=== PATIENT | female | born 1975 | race American Indian/Alaskan Native ===

== ENCOUNTER 2021-03-08 13:40 | Emergency (ER) | payer OTHER ==
[~2021-03-08] VITALS: Ht 157.5 cm; Wt 84.8 kg
[~2021-03-08 13:40] MED LIST: KEFLEX500 MG PO; NORCO 5-325 TA1 EACH PO; PSEUDOEPHEDRIN120 MG PO; VALIUM5 MG PO
[2021-03-08] MEDS ORDERED: SUMATRIPTAN SU100 MG PO (14:11)
[2021-03-08] MEDS ORDERED: DAY TIME COLD-296 ML PO (14:12)
== END 2021-03-08 17:46 | disposition home or self-care (01) ==
LOC: ED 13:40
DX: U07.1 COVID-19 (principal); F17.200 Nicotine dependence, unspecified, uncomplicated; Z79.899 Other long term (current) drug therapy
CPT/HCPCS: 99284-25; M0243; Q0244; U0003

== ENCOUNTER 2021-05-03 18:54 | Emergency (ER) | payer OTHER ==
[~2021-05-03] VITALS: Ht 157.5 cm; Wt 90.3 kg
[~2021-05-03 18:54] MED LIST changes: +DAY TIME COLD-296 ML PO; +SUMATRIPTAN SU100 MG PO
[2021-05-03] MEDS ORDERED: AUGMENTIN 875-1 EACH PO (19:36)
== END 2021-05-03 19:43 | disposition home or self-care (01) ==
LOC: ED 18:54
DX: G43.909 Migraine, unspecified, not intractable, without status migrainosus (principal); F17.200 Nicotine dependence, unspecified, uncomplicated; Z90.49 Acquired absence of other specified parts of digestive tract
CPT/HCPCS: 99282; J3030

== ENCOUNTER 2021-06-02 12:53 | Emergency (ER) | payer OTHER ==
[~2021-06-02] VITALS: Ht 157.5 cm; Wt 90.3 kg
[~2021-06-02 12:53] MED LIST changes: +AUGMENTIN 875-1 EACH PO
--- OUTSIDE RECORDS SUMMARY | 2021-06-02 13:02 | XMS ---
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 Jim has no Care Guidelines for this patient. [place] VISIT COUNT (12 MO.) 3 [facility] [place] [facility] TOTAL 3 NOTE: Visits indicate total known visits. ED/C VISIT TRACKING (12 MO.) 06/02/2021 12:54 [facility] [place] TYPE: Emergency COMPLAINT: - L EAR/JAW PAIN 05/03/2021 18:55 [facility] [place] TYPE: Emergency COMPLAINT: - LT SIDED JAW/EAR PAIN DIAGNOSES: - Jaw pain - Nicotine dependence, unspecified, uncomplicated - Migraine, unspecified, not intractable, without status migrainosus - Acquired absence of other specified parts of digestive tract 03/08/2021 13:41 [facility] [place] TYPE: Emergency COMPLAINT: - FLU SYMPTOMS DIAGNOSES: - Nicotine dependence, unspecified, uncomplicated - COVID-19 - Other fci (current) drug therapy - Diarrhea, unspecified INPATIENT VISIT TRACKING (12 MO.) No inpatient visits to display in this time frame [email or web address]
== END 2021-06-02 14:40 | disposition home or self-care (01) ==
LOC: ED 12:53
DX: K08.89 Other specified disorders of teeth and supporting structures (principal); F17.200 Nicotine dependence, unspecified, uncomplicated
CPT/HCPCS: 99282

== ENCOUNTER 2022-03-04 16:22 | Emergency (ER) | payer OTHER ==
[~2022-03-04] VITALS: Ht 157.5 cm; Wt 90.3 kg
[2022-03-04] MEDS ORDERED: PAXLOVID 300-11 EACH PO (16:47)
[2022-03-04] MEDS ORDERED: VENTOLIN HFA18 GM INH (17:23)
[2022-03-04] MEDS ORDERED: PREDNISONE20 MG PO (17:23)
== END 2022-03-04 17:35 | disposition home or self-care (01) ==
LOC: ED 16:22
DX: U07.1 COVID-19 (principal); F17.200 Nicotine dependence, unspecified, uncomplicated
CPT/HCPCS: 99283

== ENCOUNTER 2022-03-08 11:54 | Emergency (ER) | payer OTHER ==
[~2022-03-08] VITALS: Ht 157.5 cm; Wt 90.3 kg
[~2022-03-08 11:54] MED LIST changes: +PAXLOVID 300-11 EACH PO; +PREDNISONE20 MG PO; +VENTOLIN HFA18 GM INH
--- OUTSIDE RECORDS SUMMARY | 2022-03-08 11:56 | XMS ---
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 PHONE: [phone] Jim has no Care Guidelines for this patient. Care History Medical/Surgical 06/03/2021 [facility] - PATIENT IS [facility] ELIGIBLE, \T\middot;\T\nbsp; PLEASE REFER PATIENT TO [facility] FOR NON EMERGENT MEDICAL NEEDS. \T\middot;\T\nbsp; [facility] CAN SEE PATIENTS SAME DAY FOR APTS IF PATIENT CALLS FIRST THING IN THE MORNING. E.D. VISIT COUNT (12 MO.) 5 [facility] TOTAL 5 NOTE: Visits indicate total known visits. ED/UCC VISIT TRACKING (12 MO.) 03/08/2022 11:54 [facility] [place] TYPE: Emergency COMPLAINT: - CHEST PAIN 03/04/2022 16:22 [facility] [place] TYPE: Emergency COMPLAINT: - DIFFICULTY BREATHING 06/02/2021 12:54 [facility] [place] TYPE: Emergency COMPLAINT: - L EAR/JAW PAIN DIAGNOSES: - Nicotine dependence, unspecified, uncomplicated - Other specified disorders of teeth and supporting structures 05/03/2021 18:55 [facility] [place] TYPE: Emergency COMPLAINT: - LT SIDED JAW/EAR PAIN DIAGNOSES: - Acquired absence of other specified parts of digestive tract - Nicotine dependence, unspecified, uncomplicated - Migraine, unspecified, not intractable, without status migrainosus - Jaw pain 03/08/2021 13:41 [facility] [place] TYPE: Emergency COMPLAINT: - FLU SYMPTOMS DIAGNOSES: - Diarrhea, unspecified - COVID-19 - Other computer terminal operator (current) drug therapy - Nicotine dependence, unspecified, uncomplicated INPATIENT VISIT TRACKING (12 MO.) No inpatient visits to display in this time frame [email or web address]
--- NOTE | 2022-03-08 17:18 | EKG ---
[facility] [address] [facility] [place], [place] [address] Signed Sinus tachycardia Otherwise normal ECG No previous ECGs available Confirmed by MARIA EUGENIA GONZALEZ MD ([id number]) on 03/08/2022 5:18:14 PM Electronically Signed By: MARIA EUGENIA GONZALEZ MD 03/08/22 1718 PATIENT NAME: AMBER JENKINS Electrocardiogram DATE OF : 73 PHYSICIAN: MARIA EUGENIA GONZALEZ MD REPORT #: [id number] REPORT IS CONFIDENTIAL AND NOT TO BE RELEASED WITHOUT AUTHORIZATION
== END 2022-03-08 16:16 | disposition home or self-care (01) ==
LOC: ED 11:54
DX: R07.89 Other chest pain (principal); F17.200 Nicotine dependence, unspecified, uncomplicated
CPT/HCPCS: 36415; 71260; 80053; 81001; 84484; 84703; 85025; 99285-25; Q9967

== ENCOUNTER 2023-03-19 20:16 | Emergency (ER) | payer OTHER ==
[~2023-03-19] VITALS: Ht 157.5 cm; Wt 93.0 kg
[2023-03-19] MEDS ORDERED: IMITREX50 MG PO (21:50)
[2023-03-19 21:56] VITALS: BP 119/72
== END 2023-03-19 21:57 | disposition home or self-care (01) ==
LOC: ED 20:16
DX: G43.909 Migraine, unspecified, not intractable, without status migrainosus (principal); F17.200 Nicotine dependence, unspecified, uncomplicated
CPT/HCPCS: 96372; 99283; J3030

== ENCOUNTER 2023-04-15 17:05 | Emergency (ER) | payer OTHER ==
[~2023-04-15] VITALS: Ht 157.5 cm; Wt 87.1 kg
[~2023-04-15 17:05] MED LIST changes: +IMITREX50 MG PO
--- OUTSIDE RECORDS SUMMARY | 2023-04-15 17:12 | XMS ---
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 06/03/2021-[facility] PHONE: [phone] Jim has no Care Guidelines for this patient. Care History Medical/Surgical 06/03/2021 [facility] - PATIENT IS [employer] ELIGIBLE, \T\middot;\T\nbsp; PLEASE REFER PATIENT TO [facility] FOR NON EMERGENT MEDICAL NEEDS. \T\middot;\T\nbsp; [facility] CAN SEE PATIENTS SAME DAY FOR APTS IF PATIENT CALLS FIRST THING IN THE MORNING. E.D. VISIT COUNT (12 MO.) 2 [facility] TOTAL 2 NOTE: Visits indicate total known visits. ED/UCC VISIT TRACKING (12 MO.) 04/15/2023 17:05 [facility] [place] TYPE: Emergency COMPLAINT: - CHEST PAIN 03/19/2023 20:17 [facility] [place] TYPE: Emergency COMPLAINT: - HEADACHE DIAGNOSES: - Migraine, unspecified, not intractable, without status migrainosus - Nicotine dependence, unspecified, uncomplicated INPATIENT VISIT TRACKING (12 MO.) No inpatient visits to display in this time frame [email or web address]
[2023-04-15 17:27] LABS: BASOPHILS 0.6 % (0-2); EOSINOPHILS 1.4 % (0-6); HEMATOCRIT 40.3 % (35.0-50.0); HEMOGLOBIN 13.2 g/dL (12.0-18.0); LYMPHOCYTES 30.2 % (24-44); MCH 30.8 (27-36); MCHC 32.8 g/dl (30-36); MONOCYTES 7.1 % (0-12); NEUTROPHILS 60.7 % (39-80); PLATELET COUNT 210 K/uL (140-440); RBC 4.29 M/ul (4.3-5.7)
[2023-04-15 17:43] LABS: ALBUMIN 3.3 g/dL (3.4-5.0); ALBUMIN/GLOBULIN RATIO 1.03 (1.1-2.4); ANION GAP 12.9 (7-21); BILIRUBIN, TOTAL 0.7 ng/dL (0.2-1.0); BUN/CREATININE RATIO 16.09 (6.0-28.6); CALCIUM 8.2 mg/dL (8.5-10.1); CREATININE, SERUM 0.87 mg/dL (0.55-1.02); POTASSIUM 3.9 mmol/L (3.5-5.1); PROTEIN, TOTAL 6.5 g/dL (6.4-8.2)
[2023-04-15 18:58] VITALS: BP 96/60
--- NOTE | 2023-04-15 21:03 | EKG ---
[facility] [address] [place] [address] Signed Normal sinus rhythm Normal ECG When compared with ECG of 08-MAR-2022 11:54, Vent. rate has decreased BY 43 BPM Confirmed by Judah Boyle MD () on 04/15/2023 9:03:34 PM Electronically Signed By: JUDAH BOYLE MD 04/15/232102 PATIENT NAME: AMBER JENKINS Electrocardiogram DATE OF : 73 PHYSICIAN: JUDAH BOYLE MD REPORT #: [id number] REPORT IS CONFIDENTIAL AND NOT TO BE RELEASED WITHOUT AUTHORIZATION
== END 2023-04-15 19:00 | disposition home or self-care (01) ==
LOC: ED 17:05
PROVIDERS: Emergency Medicine
DX: R07.89 Other chest pain (principal); G43.909 Migraine, unspecified, not intractable, without status migrainosus; F17.200 Nicotine dependence, unspecified, uncomplicated
CPT/HCPCS: 36415; 71045; 80053; 84484; 85025; 93005; 93010; 96374; 99285-25; J1885

== ENCOUNTER 2023-06-06 10:25 | Emergency (ER) | payer OTHER ==
[~2023-06-06] VITALS: Ht 157.5 cm; Wt 84.2 kg
[2023-06-06] MEDS ORDERED: HYDROXYZINE HCL25 MG PO (12:19)
[2023-06-06 12:32] VITALS: BP 175/105
== END 2023-06-06 12:30 | disposition home or self-care (01) ==
LOC: ED 10:25
DX: F41.9 Anxiety disorder, unspecified (principal); F17.200 Nicotine dependence, unspecified, uncomplicated; Z63.8 Other specified problems related to primary support group
CPT/HCPCS: 99283; Q0177

== ENCOUNTER 2023-12-06 08:26 | Emergency (ER) | payer OTHER ==
[~2023-12-06] VITALS: Ht 157.5 cm; Wt 94.1 kg
[~2023-12-06 08:26] MED LIST changes: +HYDROXYZINE HCL25 MG PO
[2023-12-06 09:01] LABS: BASOPHILS 0.5 % (0-2); EOSINOPHILS 1.6 % (0-6); HEMATOCRIT 40.6 % (35.0-50.0); HEMOGLOBIN 13.5 g/dL (12.0-18.0); LYMPHOCYTES 24.4 % (24-44); MCH 31.2 (27-36); MCHC 33.4 g/dl (30-36); MCV 93.5 fl (81-99); MONOCYTES 6.8 % (0-12); NEUTROPHILS 66.7 % (39-80); PLATELET COUNT 178 K/uL (140-440); RBC 4.34 M/ul (4.3-5.7); RDW 14.1 (10.5-15.0)
[2023-12-06 09:16] LABS: ALBUMIN 3.5 g/dL (3.4-5.0); ALBUMIN/GLOBULIN RATIO 1.03 (1.1-2.4); ANION GAP 13.9 (7-21); BUN/CREATININE RATIO 14.08 (6.0-28.6); CALCIUM 8.5 mg/dL (8.5-10.1); CREATININE, SERUM 0.71 mg/dL (0.55-1.02); POTASSIUM 3.9 mmol/L (3.5-5.1); PROTEIN, TOTAL 6.9 g/dL (6.4-8.2)
[2023-12-06 11:06] LABS: BILIRUBIN, URINE NEGATIVE (negative); BLOOD/HGB, URINE NEGATIVE (Negative); KETONE, URINE NEGATIVE (Negative); LEUK ESTERASE, URINE NEGATIVE (negative); NITRITE, URINE NEGATIVE (negative)
[2023-12-06 11:28] VITALS: BP 133/47
== END 2023-12-06 11:28 | disposition home or self-care (01) ==
LOC: ED 08:26
PROVIDERS: Emergency Medicine
DX: R10.9 Unspecified abdominal pain (principal); F17.200 Nicotine dependence, unspecified, uncomplicated; Z79.899 Other long term (current) drug therapy
CPT/HCPCS: 36415; 80053; 81003; 83690; 85025

== ENCOUNTER 2024-07-23 09:09 | Emergency (ER) | payer OTHER ==
[~2024-07-23] VITALS: Ht 157.5 cm; Wt 93.9 kg
[2024-07-23] MEDS ORDERED: SUMAtriptan succinate 50 MG TAB PO ONE (10:00)
[2024-07-23 10:13] VITALS: BP 117/66
== END 2024-07-23 10:10 | disposition home or self-care (01) ==
LOC: ED 09:09
DX: B34.9 Viral infection, unspecified (principal); F17.200 Nicotine dependence, unspecified, uncomplicated; Z79.899 Other long term (current) drug therapy
CPT/HCPCS: 99283

== ENCOUNTER 2025-02-11 11:02 | Emergency (ER) | payer OTHER ==
[~2025-02-11] VITALS: Ht 157.5 cm; Wt 73.0 kg
[2025-02-11] MEDS ORDERED: IBUPROFEN 600 MG TAB PO ONE (11:15)
[2025-02-11] MEDS ORDERED: ACETAMINOPHEN 500 MG TAB PO ONE (11:15)
[2025-02-11 11:30] VITALS: BP 164/87
== END 2025-02-11 11:32 | disposition home or self-care (01) ==
LOC: ED 11:02
DX: S30.0XXA Contusion of lower back and pelvis, initial encounter (principal); W19.XXXA Unspecified fall, initial encounter; N93.9 Abnormal uterine and vaginal bleeding, unspecified; F17.200 Nicotine dependence, unspecified, uncomplicated; Z79.899 Other long term (current) drug therapy
CPT/HCPCS: 99283; A9270